=== PATIENT | male | born 1965 | race Caucasian/White ===

== ENCOUNTER 2022-07-11 07:43 | Day surgery (SDC) | payer SELFPAY ==
[~2022-07-11] VITALS: Ht 185.4 cm; Wt 79.4 kg
[~2022-07-11 07:43] MED LIST: OMEPRAZOLE20 MG PO
[2022-07-11] MEDS ORDERED: PERCOCET 5/321 COMBO PO (10:04)
[2022-07-11 10:32] VITALS: BP 129/69
== END 2022-07-11 10:30 | disposition home or self-care (01) | DRG 596 ==
LOC: ORM 07:43
PROVIDERS: ATTEND Surgery
PROC: 0HB5XZZ Excision of Chest Skin, External Approach (ICD-10-PCS; principal; 2022-07-11)
DX: C43.59 Malignant melanoma of other part of trunk (principal); C43.62 Malignant melanoma of left upper limb, including shoulder